=== PATIENT | male | born 2000 | race Two or more races ===

== ENCOUNTER 2024-09-11 12:03 | Emergency (ER) | payer OTHER, MEDICAID ==
[~2024-09-11] VITALS: Ht 177.8 cm; Wt 103.0 kg
[2024-09-11] MEDS: HYDROcodone-ACET 10/325MG TAB PO ONE (12:42)
--- NOTE | 2024-09-11 12:58 | DVH ---
CLINICAL INDICATION: pain TECHNIQUE: 2 radiographic views of the left wrist were obtained. Comparison: None FINDINGS/IMPRESSION: There is no evidence of acute fracture or dislocation. The visualized joint space is well maintained. The alignment is anatomical. There is no radiopaque foreign body.
--- NOTE | 2024-09-11 12:59 | DVH ---
CLINICAL INDICATION: fall TECHNIQUE: 2 radiographic views of the left hand were obtained. Comparison: None FINDINGS/IMPRESSION: There is no evidence of acute fracture or dislocation. The visualized joint space is well maintained. The alignment is anatomical. There is no radiopaque foreign body.
--- NOTE | 2024-09-11 13:16 | ED.PDOC ---
Musculoskeletal HPI Comments 24y M who presents to the ED for chief complaint of upper extremity pain. Pt states he was at work 2 days prior and he suddenly turned and states co-worker carrying a tray ran into his L hand. Pt states since, he has been having pain flexing and extending his L hand. Pt states he was told to come by his work for workers comp evaluation. Pt otherwise denies any other symptoms at this time. Pt in no noted distress in the ED. Chief Complaint: Upper Extremity Time Seen by MD: 13:14 Reviewed Notes: Medications Allergies: Coded Allergies: NO KNOWN ALLERGIES (Unverified , 09/11/24) Information Source: Patient Mode of Arrival: Ambulatory Brought in by: self Location: Left Extremity Location: Hand Past Medical History PAST MEDICAL HISTORY: Denies Surgical History: Denies all surgeries Social History Smoker: Non-Smoker Alcohol: Denies ETOH Use Drugs: Denies Drug Use Constitutional: denies: chills, diaphoresis, fatigue, fever, malaise, sweats, weakness, others EENTM: denies: blurred vision, double vision, ear bleeding, ear discharge, ear drainage, ear pain, ear ringing, eye pain, eye redness, hearing loss, mouth pain, mouth swelling, nasal discharge, nose bleeding, nose congestion, nose pain, photophobia, tearing, throat pain, throat swelling, voice changes, others Respiratory: denies: cough, hemoptysis, orthopnea, SOB at rest, shortness of breath, SOB with excertion, stridor, wheezing, others Cardiovascular: denies: chest pain, dizzy spells, diaphoresis, Dyspnea on exertion, edema, irregular heart beat, left arm pain, lightheadedness, palp itations, PND, syncope, others Gastrointestinal: denies: abdomen distended, abdominal pain, blood streaked bowels, constipated, diarrhea, dysphagia, difficulty swallowing, hematemesis, melena, nausea, poor appetite, poor fluid intake, rectal bleeding, rectal pain, vomiting, others Genitourinary: denies: burning, dysuria, flank pain, frequency, hematuria, incontinence, penile discharge, penile sore, pain, testicle pain, testicle swelling, urgency, others Neurological: denies: dizziness, fainting, headache, left sided numbness, left sided weakness, numbness, paresthesia, pre-existing deficit, right sided numbness, right sided weakness, seizure, speech problems, tingling, tremors, weakness, others Musculoskeletal: reports: joint pain (L hand ); denies: back pain, gout, joint swelling, muscle pain, muscle stiffness, neck pain, others Integumetry: denies: bruises, change in color, change in hair/nails, dryness, laceration, lesions, lumps, rash, wounds, others Allergic/Immunocompromised: denies: Difficulty Healing, Frequent Infections, Hives, Itching, others Hematologic/Lymphatic: denies: anemia, blood clots, easy bleeding, easy bruising, swollen glands, others Endocrine: denies: excessive hunger, excessive sweating, excessive thirst, excessive urination, flushing, intolerance to cold, intolerance to heat, unexplained weight gain, unexplained weight loss, others Psychiatric: denies: anxiety, bipolar disorder, depression, hopeless, panic disorder, schizophrenia, sleepless, suicidal, others All Other Systems: Reviewed and Negative Physical Exam General Appearance: Moderate Distress HEENT: Normal ENT Inspection, Pharynx Normal, TMs Normal Neck: Full Range of Motion, Non-Tender, Normal, Normal Inspection Respiratory: Chest Non-Tender, Lungs Clear, No Accessory Muscle Use, No Respiratory Distress, Normal Breath Sounds Cardiovascular: No Edema, No JVD, No Murmur, No Gallop, Normal Peripheral Pulses, Regular Rate/Rhythm Breast Exam: Deferred Gastrointestinal: No Organomegaly, Non Tender, No Pulsatile Mass, Normal Bowel Sounds, Soft Genitalia: Deferred Pelvic: Deferred Rectal: Deferred Extremities: No calf tenderness, Normal capillary refill, Normal inspection, Normal range of motion, Non-tender, No pedal edema Musculoskeletal : Apperance: Normal Neurologic: Alert, mold finisher II-XII nml as Tested, No Motor Deficits, Normal Affect, Normal Mood, No Sensory Deficits Cerebellar Function: Normal Reflexes: Normal Skin: Dry, Normal Color, Warm Lymphatic: No Adenopathy Was a procedure done? Was a procedure done?: No Differential Diagnosis EXT Differential Diagnosis: Fracture, Sprain, Dislocation Other Differential Diagnosis muscle spasm, strain X-Ray, Labs, Meds, VS Vital Signs Date Time Temp Pulse Resp B/P (MAP) Pulse Ox O2 Delivery O2 Flow Rate FiO2 09/11/24 12:47 98.9 76 16 145/86 (105) 97 98.9 09/11/24 12:47 76 16 97 Room Air 09/11/24 12:35 98.7 88 20 153/79 (206) 97 Current Medications Medications (Trade) Dose Ordered Sig/Betty Route Start Time Stop Time Status Last Admin Acetaminophen/ Hydrocodone Bitart (Dawn 10/325MG Tab) 1 tab ONCE ONCE PO 09/11/24 12:30 09/11/24 12:31 DC 09/11/24 12:42 PROCEDURE(s): LWRI2 - L WRIST 2 VIEW XRAY FINDINGS/IMPRESSION: There is no evidence of acute fracture or dislocation. The visualized joint space is well maintained. The alignment is anatomical. There is no radiopaque foreign body. PROCEDURE(s): LHAN2 - L HAND 2V XRAY FINDINGS/IMPRESSION: There is no evidence of acute fracture or dislocation. The visualized joint space is well maintained. The alignment is anatomical. There is no radiopaque foreign body. Patient alert. Complaining of left wrist pain. Vitals stable. Answering all questions. X-ray of the left wrist reviewed by me within normal limits. X-ray of the hand reviewed by me does not show any acute changes. Good pulses. Physical examination pristine. No swelling. No sign of any clot. Was given prescription of Motrin. Explained to the patient. Was told to follow up with his primary care physician. Was told to come back if there is any problem. Time of 1ST Reevaluation: 13:45 Reevaluation 1ST: Improved Patient Education/Counseling: Diagnosis, Treatment Family Education/Counseling: No Family Present Departure 1 Departure Time of Disposition: 14:28 Impression: Primary Impression: Wrist sprain Qualified Codes: S63.502A - Unspecified sprain of left wrist, initial encounter Disposition: 01 HOME / SELF CARE / HOMELESS Condition: Good e-Prescriptions Ibuprofen Micronized (MOTRIN TABLET) 600 Mg Tb 600 MG PO TID PRN for 3 Days, #9 TAB *Black box warning-NSAIDS can increase risk of NE & hypertension, GI irritation, ulceration, bleed, perferation. Do not use post cardiac surgery. Use short duration/lowest effective dose. Prov: MARCOS MOREL MD 09/11/24 Discharged With: Self Critical Care Note Critical Care Time?: No Stability Stability form required: No Heart Score Heart Score: Heart Score Response (Comments) Value History N/A 0 EKG N/A 0 Age N/A 0 Risk Factors N/A 0 Troponin N/A 0 Total 0 I personally scribed for MARCOS MOREL MD ([facility] on 09/11/24 at 13:16. Electronically submitted by Marina Holden ([facility] MARCOS MOREL MD Sep 11, 2024 13:16
[2024-09-11] MEDS ORDERED: IBU600T PO (14:29)
[2024-09-11 14:35] VITALS: BP 148/88; PULSE 78; RESP 15; TEMP 98.3; O2SAT 98
== END 2024-09-11 14:37 | disposition home or self-care (01) ==
LOC: ER 12:03
DX: S63.502A Unspecified sprain of left wrist, initial encounter (principal); X58.XXXA Exposure to other specified factors, initial encounter; Y93.89 Activity, other specified; Y92.89 Other specified places as the place of occurrence of the external cause; Y99.0 Civilian activity done for income or pay
CPT/HCPCS: 73100; 73120